=== PATIENT | male | born 1950 | race Caucasian/White ===

== ENCOUNTER → 2018-08-30 | Outpatient (CLI) | payer OTHER ==
[~2018-08-30] MED LIST: AMLO-150 PO; BUDE0.5A INH; DULO20CA45 PO; FINA5TAB4 PO; GABA400C PO; GUAI-103 PO; LISI-167 PO; MULT-516 PO; NAPR220T77 PO; PRED20TA PO; ROFL500T PO; TAMS-11 PO; TIOT18CA INH
[2018-08-30 14:43] LABS: BASOPHILS # (AUTO) 0.04 x10^3/uL (0-0.1); BASOPHILS % (AUTO) 1 % (0-1); EOSINOPHILS # (AUTO) 0.29 x10^3/uL (0-0.4); EOSINOPHILS % (AUTO) 4 % (1-7); LYMPHOCYTES # (AUTO) 1.43 x10^3/uL (1-3.4); LYMPHOCYTES % (AUTO) 18 % (22-44); MD NO; MEAN CORPUSCULAR HEMOGLOBIN 31.6 pg (27.5-34.5); MEAN CORPUSCULAR HGB CONC 33.8 g/dL (33.2-36.2); MEAN CORPUSCULAR VOLUME 93.5 fL (81-97); MEAN PLATELET VOLUME 6.9 fL (7.4-10.4); MONOCYTES # (AUTO) 0.57 x10^3/uL (0.2-0.8); MONOCYTES % (AUTO) 7 % (2-9); NEUTROPHILS # (AUTO) 5.63 x10^3/uL (1.8-6.8); NEUTROPHILS % (AUTO) 71 % (42-75); PLATELET COUNT 269 x10^3/uL (130-400); RED BLOOD COUNT 5.11 x10^6/uL (4.38-5.82)
[2018-08-30 14:50] LABS: INTERNATIONAL NORMALIZED RATIO 0.96 (0.93-1.1); PROTHROMBIN TIME 10.2 Seconds (9.6-11.5)
[2018-08-30 14:51] LABS: ALANINE AMINOTRANSFERASE 39 U/L (12-78); ALBUMIN 3.9 g/dL (3.4-5.0); ANION GAP 8 mmol/L (5-15); CALCIUM 8.6 mg/dL (8.5-10.1); CHLORIDE 104 mmol/L (98-107); CREATININE 1.89 mg/dL (0.7-1.3)
[2018-08-30 14:54] LABS: ALKALINE PHOSPHATASE 70 U/L (45-117); BILIRUBIN,TOTAL 0.7 mg/dL (0.2-1.0); TOTAL PROTEIN 7.5 g/dL (6.4-8.2)
== END | disposition home or self-care (01) ==
LOC: STAR 13:15
PROVIDERS: ATTEND Neurological Surgery
DX: Z01.818 Encounter for other preprocedural examination (principal); M48.062 Spinal stenosis, lumbar region with neurogenic claudication
CPT/HCPCS: 36415; 71046; 80053; 85025; 85610; 85730; 93005

== ENCOUNTER 2018-09-13 06:07 | Inpatient (IN) | payer OTHER ==
[~2018-09-13] VITALS: Ht 182.9 cm; Wt 106.8 kg
[2018-09-13] MEDS ORDERED: BACITRACIN 50,000 UNIT ONE (06:33)
[2018-09-13] MEDS ORDERED: THROMBIN 5,000 UNIT VIAL TP ONE (06:33)
[2018-09-13] MEDS ORDERED: BACITRACIN/POLYMIXIN B SULFATE OINT 14 GM ONE (06:33)
[2018-09-13] MEDS ORDERED: BUPIVACAINE/PF-EPI 0.5% 1:200K ONE (06:33)
[2018-09-13] MEDS ORDERED: LACTATED RINGERS 1,000 ML IV SCH (06:44)
[2018-09-13] MEDS ORDERED: ALBU8.5H8 PO (06:47)
[2018-09-13] MEDS ORDERED: MIDAZOLAM 1 MG/ML, 2ML ONE (07:18)
[2018-09-13] MEDS ORDERED: FENTANYL PF 250 MCG/5ML ONE ×2 (07:18→10:34)
[2018-09-13] MEDS ORDERED: GLYCOPYRROLATE 0.2MG/1ML, 5ML ONE (07:36)
[2018-09-13] MEDS ORDERED: PROPOFOL 10 MG/ML, 20ML ONE (07:36)
[2018-09-13] MEDS ORDERED: METOPROLOL 1 MG/ML, 5ML ONE (07:36)
[2018-09-13] MEDS ORDERED: VASOPRESSIN 20 UNIT/ML, 1ML ONE (07:36)
[2018-09-13] MEDS ORDERED: EPHEDRINE 50 MG/ML, 1ML ONE (07:36)
[2018-09-13] MEDS ORDERED: NEOSTIGMINE 1 MG/ML, 10ML ONE (07:36)
[2018-09-13] MEDS ORDERED: ONDANSETRON 2MG/ML, 2ML ONE (07:36)
[2018-09-13] MEDS ORDERED: CEFAZOLIN 1,000 MG ONE (07:36)
[2018-09-13] MEDS ORDERED: ROCURONIUM 10 MG/ML,10ML ONE (07:36)
[2018-09-13] MEDS ORDERED: FENTANYL PF 100 MCG/2ML IV PRN (08:00)
[2018-09-13] MEDS ORDERED: ALBUTEROL SULFATE 2.5 MG/3 ML NPPB PRN ×3 (08:00→13:30)
[2018-09-13] MEDS ORDERED: hydrALAzine 20 MG/ML, 1ML IV PRN (08:00)
[2018-09-13] MEDS ORDERED: PROMETHAZINE 25 MG SUPP PR PRN (08:00)
[2018-09-13] MEDS ORDERED: LABETALOL 5MG/ML, 20ML IV PRN (08:00)
[2018-09-13] MEDS ORDERED: ACETAMINOPHEN 325 MG TABLET PO PRN (08:00)
[2018-09-13] MEDS ORDERED: OXYcodone 5 MG/5 ML ORAL.SOL UDC PO PRN (08:00)
[2018-09-13] MEDS ORDERED: HYDROmorphone 2 MG/ML, 1ML IVPush PRN (08:00)
[2018-09-13] MEDS ORDERED: MEPERIDINE/PF 25MG/0.5ML IVPush PRN (08:00)
[2018-09-13] MEDS ORDERED: SUGAMMADEX 200 MG/2 ML IVPush ONE (10:43)
[2018-09-13] MEDS ORDERED: ALBUTEROL/IPRATROPIUM 2.5MG/0.5MG, 3 ML ONE (10:48)
[2018-09-13] MEDS ORDERED: KETAMINE 50 MG/ML, 10ML ONE (10:53)
[2018-09-13] MEDS ORDERED: ALBUTEROL SULFATE 2.5 MG/3 ML ONE (11:02)
[2018-09-13] MEDS ORDERED: FENTANYL PF 100 MCG/2ML ONE (12:22)
[2018-09-13] MEDS ORDERED: HYDROcodone/APAP 10/325 MG TABLET ONE (12:53)
[2018-09-13] MEDS ORDERED: BISACODYL 10 MG SUPP PR PRN (13:30)
[2018-09-13] MEDS ORDERED: PROMETHAZINE 25 MG/ML, 1ML IM PRN (13:30)
[2018-09-13] MEDS ORDERED: MAGNESIUM HYDROXIDE 8%, 30ML UDC PO PRN (13:30)
[2018-09-13] MEDS ORDERED: ACETAMINOPHEN 650 MG SUPP PR PRN (13:30)
[2018-09-13] MEDS ORDERED: IPRATROPIUM 0.5 MG/2.5 ML INHA NPPB SCH (13:30)
[2018-09-13] MEDS ORDERED: DIPHENHYDRAMINE 50 MG CAPSULE PO PRN (13:30)
[2018-09-13] MEDS ORDERED: ONDANSETRON 2MG/ML, 2ML IV PRN (13:30)
[2018-09-13] MEDS ORDERED: DIPHENHYDRAMINE 50 MG/ML, 1ML IM PRN (13:30)
[2018-09-13] MEDS: HYDROcodone/APAP 10/325 MG TABLET PO PRN ×4 (13:53→22:37)
[2018-09-13] MEDS: methylPREDNISolone SOD SUCC 125 MG/2 ML IVPush SCH ×2 (13:53→21:13)
[2018-09-13] MEDS: D5%-0.9% NACL+KCL 20MEQ 1,000 ML IV SCH ×2 (13:56→23:30)
[2018-09-13] MEDS ORDERED: ALBUTEROL SULFATE 2.5 MG/3 ML NPPB SCH (15:00)
[2018-09-13] MEDS: ALBUTEROL/IPRATROPIUM 2.5MG/0.5MG, 3 ML NPPB SCH ×3 (15:30→23:09)
[2018-09-13] MEDS: CEFAZOLIN PMX 1GM/50ML 50 ML IVPB SCH ×2 (15:47→23:44)
[2018-09-13] MEDS: GABAPENTIN 400 MG CAPSULE PO SCH ×2 (15:51→21:13)
[2018-09-13] MEDS: METHOCARBAMOL 750 MG TABLET PO PRN (15:51)
[2018-09-13] MEDS ORDERED: TAMSULOSIN 0.4 MG CAP.ER.24H ONE (18:01)
[2018-09-13] MEDS: GUAIFENESIN ER 600 MG TABLET PO SCH (21:14)
[2018-09-13] MEDS: BUDESONIDE 0.5 MG/2 ML INHA NPPB SCH (23:09)
[2018-09-14] MEDS: ALBUTEROL/IPRATROPIUM 2.5MG/0.5MG, 3 ML NPPB SCH ×6 (03:30→21:53)
[2018-09-14 04:00] VITALS: BP 118/86
[2018-09-14 04:31] LABS: BASOPHILS # (AUTO) 0.08 x10^3/uL (0-0.1); BASOPHILS % (AUTO) 1 % (0-1); EOSINOPHILS % (AUTO) 0 % (1-7); LYMPHOCYTES # (AUTO) 0.45 x10^3/uL (1-3.4); LYMPHOCYTES % (AUTO) 3 % (22-44); MD NO; MEAN CORPUSCULAR HGB CONC 33.7 g/dL (33.2-36.2); MEAN CORPUSCULAR VOLUME 94.7 fL (81-97); MEAN PLATELET VOLUME 6.9 fL (7.4-10.4); MONOCYTES # (AUTO) 0.47 x10^3/uL (0.2-0.8); MONOCYTES % (AUTO) 3 % (2-9); NEUTROPHILS # (AUTO) 13.58 x10^3/uL (1.8-6.8); NEUTROPHILS % (AUTO) 93 % (42-75); PLATELET COUNT 271 x10^3/uL (130-400); RED BLOOD COUNT 4.34 x10^6/uL (4.38-5.82); RED CELL DISTRIBUTION WIDTH 14.1 % (9.4-14.8)
[2018-09-14 04:32] LABS: ALBUMIN 3.3 g/dL (3.4-5.0); ANION GAP 8 mmol/L (5-15); CALCIUM 8.5 mg/dL (8.5-10.1); CHLORIDE 103 mmol/L (98-107)
[2018-09-14] MEDS: D5%-0.9% NACL+KCL 20MEQ 1,000 ML IV SCH (05:00)
[2018-09-14] MEDS: HYDROcodone/APAP 10/325 MG TABLET PO PRN ×4 (05:00→23:30)
[2018-09-14] MEDS: methylPREDNISolone SOD SUCC 125 MG/2 ML IVPush SCH ×4 (05:00→23:31)
[2018-09-14] MEDS: DULOXETINE 20 MG CAPSULE.DR PO SCH (08:32)
[2018-09-14] MEDS: FINASTERIDE 5 MG TABLET PO SCH (08:32)
[2018-09-14] MEDS: GUAIFENESIN ER 600 MG TABLET PO SCH ×2 (08:32→20:38)
[2018-09-14] MEDS: TAMSULOSIN 0.4 MG CAP.ER.24H PO SCH (08:32)
[2018-09-14] MEDS: SENNA/DOCUSATE TABLET PO SCH (08:32)
[2018-09-14] MEDS: GABAPENTIN 400 MG CAPSULE PO SCH (08:32)
[2018-09-14] MEDS: AMLODIPINE 5 MG TABLET PO SCH (08:33)
[2018-09-14] MEDS ORDERED: FLUTICASONE/VILANTEROL 200-25MCG/INH INH SCH (09:00)
[2018-09-14] MEDS: ROFLUMILAST 500 MCG PO SCH (09:00)
[2018-09-14 09:56] LABS: MICROSCOPIC AUTO
[2018-09-14] MEDS ORDERED: LACTATED RINGERS 1,000 ML IV SCH (10:00)
[2018-09-14] MEDS: BUDESONIDE 0.5 MG/2 ML INHA NPPB SCH ×2 (10:07→21:53)
[2018-09-14] MEDS: FLUTICASONE/VILANTEROL 200-25MCG/INH INH SCH (10:37)
[2018-09-14] MEDS ORDERED: PNEUMOCOCCAL 23 VACCINE IM-VACC ONE (12:30)
[2018-09-14 14:11] VITALS: BP 100/64
[2018-09-14] MEDS: METHOCARBAMOL 750 MG TABLET PO PRN (17:23)
[2018-09-14 19:40] VITALS: BP 122/72
[2018-09-14] MEDS: GABAPENTIN 300 MG CAPSULE PO SCH (20:39)
[2018-09-15 04:00] VITALS: BP 120/78
[2018-09-15 05:13] LABS: ANION GAP 4 mmol/L (5-15); CALCIUM 8.5 mg/dL (8.5-10.1); CHLORIDE 105 mmol/L (98-107); CREATININE 1.04 mg/dL (0.7-1.3)
[2018-09-15] MEDS: methylPREDNISolone SOD SUCC 125 MG/2 ML IVPush SCH ×3 (05:45→17:21)
[2018-09-15] MEDS: ALBUTEROL/IPRATROPIUM 2.5MG/0.5MG, 3 ML NPPB SCH ×5 (06:00→22:00)
[2018-09-15] MEDS: ROFLUMILAST 500 MCG PO SCH (08:35)
[2018-09-15] MEDS: FLUTICASONE/VILANTEROL 200-25MCG/INH INH SCH (08:35)
[2018-09-15] MEDS: TAMSULOSIN 0.4 MG CAP.ER.24H PO SCH (08:36)
[2018-09-15] MEDS: DULOXETINE 20 MG CAPSULE.DR PO SCH (08:36)
[2018-09-15] MEDS: GUAIFENESIN ER 600 MG TABLET PO SCH ×2 (08:36→21:58)
[2018-09-15] MEDS: SENNA/DOCUSATE TABLET PO SCH (08:37)
[2018-09-15] MEDS: AMLODIPINE 5 MG TABLET PO SCH (08:37)
[2018-09-15] MEDS: FINASTERIDE 5 MG TABLET PO SCH (08:37)
[2018-09-15] MEDS: BUDESONIDE 0.5 MG/2 ML INHA NPPB SCH ×2 (09:00→19:33)
[2018-09-15 09:40] VITALS: BP 148/89
[2018-09-15] MEDS ORDERED: AMLODIPINE 5 MG TABLET PO ONE (13:17)
[2018-09-15] MEDS: LABETALOL 5MG/ML, 20ML IV PRN (13:29)
[2018-09-15] MEDS ORDERED: FUROSEMIDE 40 MG/4 ML IV ONE (13:30)
[2018-09-15] MEDS ORDERED: FUROSEMIDE 40 MG/4 ML ONE (13:32)
[2018-09-15 13:45] VITALS: BP 145/90
[2018-09-15] MEDS ORDERED: OMNIPAQUE 350 MG/ML, 100ML BOTTLE ONE (18:32)
[2018-09-15 18:35] VITALS: BP 141/90
[2018-09-15] MEDS: HYDROcodone/APAP 5/325 TABLET PO PRN (18:59)
[2018-09-15] MEDS: METHOCARBAMOL 750 MG TABLET PO PRN (18:59)
[2018-09-15] MEDS: GABAPENTIN 300 MG CAPSULE PO SCH (21:58)
[2018-09-16] MEDS: methylPREDNISolone SOD SUCC 125 MG/2 ML IVPush SCH ×3 (00:05→12:10)
[2018-09-16 00:25] VITALS: BP 122/82
[2018-09-16 05:36] LABS: BASOPHILS % (AUTO) 0 % (0-1); EOSINOPHILS # (AUTO) 0.02 x10^3/uL (0-0.4); EOSINOPHILS % (AUTO) 0 % (1-7); LYMPHOCYTES # (AUTO) 0.36 x10^3/uL (1-3.4); LYMPHOCYTES % (AUTO) 3 % (22-44); MD NO; MEAN CORPUSCULAR HEMOGLOBIN 31.8 pg (27.5-34.5); MEAN CORPUSCULAR HGB CONC 33.8 g/dL (33.2-36.2); MEAN CORPUSCULAR VOLUME 94.2 fL (81-97); MEAN PLATELET VOLUME 7.3 fL (7.4-10.4); MONOCYTES # (AUTO) 0.58 x10^3/uL (0.2-0.8); MONOCYTES % (AUTO) 5 % (2-9); NEUTROPHILS # (AUTO) 11.43 x10^3/uL (1.8-6.8); NEUTROPHILS % (AUTO) 92 % (42-75); PLATELET COUNT 313 x10^3/uL (130-400); RED CELL DISTRIBUTION WIDTH 14.2 % (9.4-14.8)
[2018-09-16 05:41] LABS: ALBUMIN 2.9 g/dL (3.4-5.0); ANION GAP 6 mmol/L (5-15); CHLORIDE 103 mmol/L (98-107)
[2018-09-16] MEDS: METHOCARBAMOL 750 MG TABLET PO PRN ×2 (05:46→19:28)
[2018-09-16 05:59] LABS: ALANINE AMINOTRANSFERASE 30 U/L (12-78); ALKALINE PHOSPHATASE 51 U/L (45-117); BILIRUBIN,TOTAL 0.5 mg/dL (0.2-1.0); CREATININE 1.06 mg/dL (0.7-1.3); TOTAL PROTEIN 6.9 g/dL (6.4-8.2)
[2018-09-16] MEDS: ALBUTEROL/IPRATROPIUM 2.5MG/0.5MG, 3 ML NPPB SCH ×5 (06:00→22:00)
[2018-09-16] MEDS: BUDESONIDE 0.5 MG/2 ML INHA NPPB SCH ×2 (06:45→19:23)
[2018-09-16 07:34] VITALS: BP 152/89
[2018-09-16] MEDS: FLUTICASONE/VILANTEROL 200-25MCG/INH INH SCH (08:12)
[2018-09-16] MEDS: AMLODIPINE 5 MG TABLET PO SCH (08:12)
[2018-09-16] MEDS: GUAIFENESIN ER 600 MG TABLET PO SCH ×2 (08:12→20:45)
[2018-09-16] MEDS: ROFLUMILAST 500 MCG PO SCH (08:12)
[2018-09-16] MEDS: TAMSULOSIN 0.4 MG CAP.ER.24H PO SCH (08:12)
[2018-09-16] MEDS: DULOXETINE 20 MG CAPSULE.DR PO SCH (08:12)
[2018-09-16] MEDS: SENNA/DOCUSATE TABLET PO SCH (08:13)
[2018-09-16] MEDS: FINASTERIDE 5 MG TABLET PO SCH (08:13)
[2018-09-16] MEDS: LISINOPRIL 10 MG TABLET PO SCH (11:25)
[2018-09-16 14:29] VITALS: BP 150/91
[2018-09-16] MEDS ORDERED: LABETALOL 5MG/ML, 20ML IVPush ONE (15:00)
[2018-09-16] MEDS: LABETALOL 5MG/ML, 20ML IV PRN (15:36)
[2018-09-16 16:25] VITALS: BP 130/87
[2018-09-16 19:10] VITALS: BP 142/89
[2018-09-16] MEDS: HYDROcodone/APAP 5/325 TABLET PO PRN (19:28)
[2018-09-16] MEDS: GABAPENTIN 300 MG CAPSULE PO SCH (20:45)
[2018-09-17 01:01] VITALS: BP 113/72
[2018-09-17 05:22] LABS: BASOPHILS # (AUTO) 0.03 x10^3/uL (0-0.1); BASOPHILS % (AUTO) 0 % (0-1); EOSINOPHILS # (AUTO) 0.01 x10^3/uL (0-0.4); EOSINOPHILS % (AUTO) 0 % (1-7); LYMPHOCYTES # (AUTO) 0.92 x10^3/uL (1-3.4); LYMPHOCYTES % (AUTO) 10 % (22-44); MD NO; MEAN CORPUSCULAR HEMOGLOBIN 31.7 pg (27.5-34.5); MEAN CORPUSCULAR HGB CONC 33.5 g/dL (33.2-36.2); MEAN CORPUSCULAR VOLUME 94.6 fL (81-97); MONOCYTES # (AUTO) 1.01 x10^3/uL (0.2-0.8); MONOCYTES % (AUTO) 11 % (2-9); NEUTROPHILS # (AUTO) 7.39 x10^3/uL (1.8-6.8); NEUTROPHILS % (AUTO) 79 % (42-75); PLATELET COUNT 286 x10^3/uL (130-400); RED BLOOD COUNT 4.18 x10^6/uL (4.38-5.82); RED CELL DISTRIBUTION WIDTH 13.9 % (9.4-14.8)
[2018-09-17 05:23] LABS: ANION GAP 5 mmol/L (5-15); CALCIUM 8.6 mg/dL (8.5-10.1); CHLORIDE 104 mmol/L (98-107); CREATININE 0.92 mg/dL (0.7-1.3)
[2018-09-17] MEDS: HYDROcodone/APAP 5/325 TABLET PO PRN ×5 (06:24→22:07)
[2018-09-17] MEDS: METHOCARBAMOL 750 MG TABLET PO PRN ×2 (06:24→14:23)
[2018-09-17 07:15] VITALS: BP 126/83
[2018-09-17] MEDS: FINASTERIDE 5 MG TABLET PO SCH (08:08)
[2018-09-17] MEDS: GUAIFENESIN ER 600 MG TABLET PO SCH ×2 (08:08→22:08)
[2018-09-17] MEDS: DULOXETINE 20 MG CAPSULE.DR PO SCH (08:08)
[2018-09-17] MEDS: ROFLUMILAST 500 MCG PO SCH (08:08)
[2018-09-17] MEDS: TAMSULOSIN 0.4 MG CAP.ER.24H PO SCH (08:08)
[2018-09-17] MEDS: SENNA/DOCUSATE TABLET PO SCH (08:08)
[2018-09-17] MEDS: AMLODIPINE 5 MG TABLET PO SCH (08:08)
[2018-09-17] MEDS: FLUTICASONE/VILANTEROL 200-25MCG/INH INH SCH (08:08)
[2018-09-17] MEDS: LISINOPRIL 10 MG TABLET PO SCH (08:08)
[2018-09-17] MEDS: BUDESONIDE 0.5 MG/2 ML INHA NPPB SCH ×2 (08:10→19:45)
[2018-09-17] MEDS: ALBUTEROL/IPRATROPIUM 2.5MG/0.5MG, 3 ML NPPB SCH ×5 (08:10→22:40)
[2018-09-17 13:15] VITALS: BP 137/89
[2018-09-17 19:18] VITALS: BP 131/84
[2018-09-17] MEDS: GABAPENTIN 300 MG CAPSULE PO SCH (22:07)
[2018-09-18 02:13] VITALS: BP 135/85
[2018-09-18] MEDS: HYDROcodone/APAP 5/325 TABLET PO PRN ×2 (02:41→06:41)
[2018-09-18] MEDS: ALBUTEROL/IPRATROPIUM 2.5MG/0.5MG, 3 ML NPPB SCH ×2 (06:00→09:43)
[2018-09-18] MEDS: BUDESONIDE 0.5 MG/2 ML INHA NPPB SCH (06:33)
[2018-09-18 07:06] VITALS: BP 147/96
[2018-09-18] MEDS: ROFLUMILAST 500 MCG PO SCH (09:00)
[2018-09-18] MEDS ORDERED: PRED20TA PO (09:32)
[2018-09-18] MEDS ORDERED: PRED10TA PO (09:32)
[2018-09-18] MEDS: FINASTERIDE 5 MG TABLET PO SCH (09:41)
[2018-09-18] MEDS: TAMSULOSIN 0.4 MG CAP.ER.24H PO SCH (09:41)
[2018-09-18] MEDS: SENNA/DOCUSATE TABLET PO SCH (09:41)
[2018-09-18] MEDS: LISINOPRIL 10 MG TABLET PO SCH (09:41)
[2018-09-18] MEDS: DULOXETINE 20 MG CAPSULE.DR PO SCH (09:41)
[2018-09-18] MEDS: AMLODIPINE 5 MG TABLET PO SCH (09:42)
[2018-09-18] MEDS: FLUTICASONE/VILANTEROL 200-25MCG/INH INH SCH (09:42)
[2018-09-18] MEDS: METHOCARBAMOL 750 MG TABLET PO PRN (09:42)
[2018-09-18] MEDS: GUAIFENESIN ER 600 MG TABLET PO SCH (09:42)
[2018-09-18 11:32] VITALS: BP 140/86
== END 2018-09-18 12:55 | disposition home or self-care (01) | DRG 515 ==
LOC: OUT 06:07 → CCU 12:52 → OUT 12:58 → 4NOR 09-14 14:15 → DCLOUNGE 09-18 12:36
PROVIDERS: ADMIT Neurological Surgery; ATTEND Neurological Surgery
PROC: 03HY32Z Insertion of Monitoring Device into Upper Artery, Percutaneous Approach (ICD-10-PCS; 2018-09-13)
PROC: 01NR0ZZ Release Sacral Nerve, Open Approach (ICD-10-PCS; 2018-09-13)
PROC: 01NB0ZZ Release Lumbar Nerve, Open Approach (ICD-10-PCS; principal; 2018-09-13 07:30)
DX: M48.062 Spinal stenosis, lumbar region with neurogenic claudication (principal); J96.01 Acute respiratory failure with hypoxia; J44.1 Chronic obstructive pulmonary disease with (acute) exacerbation; J98.11 Atelectasis; N17.9 Acute kidney failure, unspecified; F17.210 Nicotine dependence, cigarettes, uncomplicated; E66.9 Obesity, unspecified; Z68.31 Body mass index [BMI] 31.0-31.9, adult; I95.9 Hypotension, unspecified; R00.0 Tachycardia, unspecified; E05.90 Thyrotoxicosis, unspecified without thyrotoxic crisis or storm; F41.9 Anxiety disorder, unspecified; I12.9 Hypertensive chronic kidney disease with stage 1 through stage 4 chronic kidney disease, or unspecified chronic kidney disease; K59.00 Constipation, unspecified; M48.061 Spinal stenosis, lumbar region without neurogenic claudication; M54.16 Radiculopathy, lumbar region; N18.9 Chronic kidney disease, unspecified; N40.1 Benign prostatic hyperplasia with lower urinary tract symptoms; R33.8 Other retention of urine; Z66 Do not resuscitate; Z82.49 Family history of ischemic heart disease and other diseases of the circulatory system; Z82.5 Family history of asthma and other chronic lower respiratory diseases; Z86.73 Personal history of transient ischemic attack (TIA), and cerebral infarction without residual deficits; Z96.641 Presence of right artificial hip joint
CPT/HCPCS: 36415; 72100; 84145; J3490; J7620; J7626; 71045; 71275; 80048; 80053; 81001; 82040; 82330; 82570; 82803; 82947; 82962; 83735; 84100; 84132; 84156; 84295; 84300; 84436; 84443; 84481; 85014; 85025; 87081; 87086; 90656; 90732; 93005; 93306; 94640; G0378; J0690; J1940; J2250; J2405; J2704; J2710; J3010; Q9967; J2930; J3480; J7120; J7512